=== PATIENT | male | born 1945 | race Caucasian/White ===

== ENCOUNTER 2018-07-25 18:18 | Emergency (ER) | payer MEDICARE ==
[~2018-07-25] VITALS: Ht 167.6 cm; Wt 76.0 kg
[2018-07-25 19:41] LABS: CLARITY URINE CLEAR (CLEAR); COLOR URINE YELLOW (YELLOW); KETONES URINE TRACE (NEGATIVE); LEUKOCYTE ESTERASE URINE NEGATIVE (NEGATIVE); NITRITE URINE NEGATIVE (NEGATIVE); OCCULT BLOOD URINE 1+ (NEGATIVE); PROTEIN URINE NEGATIVE (NEGATIVE); SPECIFIC GRAVITY URINE 1.012 (1.005-1.030); UROBILINOGEN URINE 0.2 E.U./dL (0.2-1.0)
[2018-07-25 22:23] VITALS: BP 155/89
== END 2018-07-25 22:24 | disposition home or self-care (01) ==
LOC: ER 18:18
DX: R33.9 Retention of urine, unspecified (principal)
CPT/HCPCS: 51702; 99284

== ENCOUNTER 2019-07-12 23:56 | Emergency (ER) | payer BC, MEDICARE ==
[~2019-07-12] VITALS: Ht 170.2 cm; Wt 82.0 kg
[2019-07-13 03:35] LABS: CHLORIDE 108 mEq/L (98-107); PROTHROMBIN TIME 11.1 sec (9.6-11.0)
[2019-07-13 03:37] LABS: BASOPHILS % 0.8 % (0.0-2.0); EOSINOPHILS % 0.8 % (0.0-5.0); HEMATOCRIT. 40.8 % (42.0-52.0); LYMPHOCYTES % 23.6 % (20.0-50.0); MEAN CORPUSCULAR VOLUME 93.3 fL (80.0-94.0); MEAN PLATELET VOLUME 9.7 fl (7.4-10.4); MONOCYTES % 7.8 % (2.0-8.0); PLATELET 190 x1000/uL (130-400); RED BLOOD CELL COUNT 4.37 mill/uL (4.7-6.1); RED CELL DISTRIBUTION WIDTH 13.7 % (11.6-14.6)
[2019-07-13 05:25] VITALS: BP 139/64
== END 2019-07-13 05:26 | disposition home or self-care (01) ==
LOC: ER 23:56
DX: R10.9 Unspecified abdominal pain (principal); F10.21 Alcohol dependence, in remission
CPT/HCPCS: 36415; 76705; 80053; 85025; 99284

== ENCOUNTER 2019-08-15 18:44 | Emergency (ER) | payer BC ==
[~2019-08-15] VITALS: Ht 172.7 cm; Wt 75.0 kg
[2019-08-15 23:45] VITALS: BP 142/90
== END 2019-08-15 23:47 | disposition home or self-care (01) ==
LOC: ER 18:44
DX: R33.8 Other retention of urine (principal); R03.0 Elevated blood-pressure reading, without diagnosis of hypertension
CPT/HCPCS: 51702; 99284